=== PATIENT | male | born 1965 | race Caucasian/White ===

== ENCOUNTER 2016-09-17 19:45 | Inpatient (IN) | payer MEDICARE, MEDICAID ==
[2016-09-17 20:57] LABS: Benzodiazepine Urine Screen None Detected (None Detect)
[2016-09-17 21:03] LABS: Urine Bacteria 1+ (Absent); Urine Bilirubin Negative (Negative); Urine Glucose Negative (Negative); Urine Nitrite Negative (Negative)
[2016-09-17 21:30] LABS: Hematocrit 47 % (42-52); Hemoglobin 16.5 g/dl (14.0-18.0); Mean Corpuscular HGB Conc 35 g/dl (31-36); Mean Corpuscular Hemoglobin 30 pg (27-31); Mean Corpuscular Volume 86 fL (80-94); Mean Platelet Volume 7 um3 (7.4-10.4); Red Blood Count 5.49 10^6/ul (4.0-5.4); Red Cell Distribution Width 13 % (10.5-15); White Blood Count 9.4 10^3/ul (3.5-10.8)
[2016-09-17 21:45] LABS: ALT 12 U/L (7-52); AST 18 U/L (13-39); Albumin 4.4 g/dL (3.2-5.2); Alkaline Phosphatase 98 U/L (34-104); Anion Gap 8 mmol/L (2-11); BUN/Creatinine Ratio 14.6 (8-20); Blood Urea Nitrogen 13 mg/dL (6-24); CO2 Carbon Dioxide 20 mmol/L (22-32); Calcium 9.3 mg/dL (8.6-10.3); Chloride 108 mmol/L (101-111); EGFR Non-African American 89.4 (>60); Globulin 3.1 g/dL (2-4); Glucose 98 mg/dL (70-100); Potassium 3.6 mmol/L (3.5-5.0); Sodium 136 mmol/L (133-145); Total Protein 7.5 g/dL (6.4-8.9)
--- NOTE | 2016-09-17 21:47 | ED ---
Trav Freeman Claudia, scribed for Gallito Pradhan MD on 09/17/16 at 2023 . Psychiatric Complaint - HPI Summary HPI Summary: 51 year old male presents to the ED via [facility]. Per pt he has been unable to sleep for 5 days. Pt denies any thoughts of hurting himself or others. Pt states that he has chronic back pain and is on RX for it but it is causing him trouble sleeping. Pt denies the use of pain killers and he does not want to use them for the pain. Pt states that he does not remember when he got pulled over because he has only gotten 1.5 hours of sleep in the past 4-5 days. he states that he has been here before for similar Sx. in the past. He notes that all he wants is to sleep. Pt denies the use of melatonin to sleep. PMHX of Depression and Anxiety - History Of Current Complaint Chief Complaint: EDMentalHealth Time Seen by Provider: 09/17/16 20:14 Hx Obtained From: Patient, Other: - [facility] Onset/Duration: Still Present Timing: Constant Associated Signs And Symptoms: Positive: Sleep Disturbance - unable to sleep Has Suicidal: Denies: Thoughts Has Homicidal: Denies: Thoughts - Allergies/Home Medications Allergies/Adverse Reactions: Allergies Allergy/AdvReac Type Severity Reaction Status Date / Time No Known Allergies Allergy Verified 11/08/15 11:38 Home Medications: Home Medications Mirtazapine TAB* [Remeron TAB*] 15 mg PO BEDTIME 09/17/16 [History Confirmed ] PMH/Surg Hx/FS Hx/Imm Hx Previously Healthy: Yes GI History: Comment Only: Hx Ulcer - STATES "FEW YEARS BACK" WAS TOLD HE HAD ULCER, NO Sx NO Tx Musculoskeletal History: Reports: Hx Arthritis - LOW BACK, ELBOWS, Hx Back Problems Sensory History: Reports: Hx Contacts or Glasses - WILL WEAR GLASSES Denies: Other Sensory Impairments Opthamlomology History: Reports: Hx Contacts or Glasses - WILL WEAR GLASSES Denies: Other Sensory Impairments Neurological History: Reports: Hx Headaches - Hx OF, CURRENTLY NOT VERY OFTEN Psychiatric History: Reports: Hx Anxiety - ON MEDS DAILY, Hx Depression, Hx Community Mental Health Tx Denies: Hx Eating Disorder, Hx Inpatient Treatment, Hx of Violent Episodes Against Others, Hx Substance Abuse - Surgical History Surgery Procedure, Year, and Place: 1973 appendectomy [facility] Hx Anesthesia Reactions: No Infectious Disease History: Denies: Traveled Outside the [place] in Last 30 Days - Family History Family History: Depression, Anxiety - Social History Occupation: Disabled Lives: With Family Alcohol Use: None Substance Use Type: Reports: Marijuana Substance Use Comment - Amount & Last Used: USES MOST NIGHTS; WILL REFRAIN FEW DAYS PRE-OP Smoking Status (MU): Light Every Day Tobacco Smoker Type: Cigarettes Amount Used/How Often: 4 CIGS/DAY 2015; Hx OF 1PPD 20 YRS, Have You Smoked in the Last Year: Yes Review of Systems Constitutional: Negative Negative: Fever, Chills Eyes: Negative ENT: Negative Cardiovascular: Negative Respiratory: Negative Gastrointestinal: Negative Genitourinary: Negative Musculoskeletal: Negative Skin: Negative Neurological: Negative Psychological: Other - unable to sleep All Other Systems Reviewed And Are Negative: Yes Physical Exam Triage Information Reviewed: Yes Vital Signs On Initial Exam: Initial Vitals Temp Pulse Resp BP Pulse Ox 98.2 F 95 20 160/96 98 09/17/16 19:53 09/17/16 19:53 09/17/16 19:53 09/17/16 19:53 09/17/16 19:53 Vital Signs Reviewed: Yes Appearance: Positive: Well-Appearing, No Pain Distress Skin: Positive: Warm Head/Face: Positive: Normal Head/Face Inspection Eyes: Positive: LEANA ENT: Positive: Hearing grossly normal Neck: Positive: Supple Respiratory/Lung Sounds: Positive: Breath Sounds Present Cardiovascular: Positive: RRR Abdomen Description: Positive: Nontender, Soft Bowel Sounds: Positive: Present Musculoskeletal: Positive: Strength/ROM Intact Neurological: Positive: Normal Gait Psychiatric: Positive: Anxious Diagnostics - Vital Signs Vital Signs Temp Pulse Resp BP Pulse Ox 09/17/16 19:53 98.2 F 95 20 160/96 98 - Laboratory Lab Results: Lab Results 09/17/16 09/17/16 09/17/16 Range/Units 20:30 20:30 21:20 WBC 9.4 (3.5-10.8) 10^3/ul RBC 5.49 H (4.0-5.4) 10^6/ul Hgb 16.5 (14.0-18.0) g/dl Hct 47 (42-52) % MCV 86 (80-94) fL MCH 30 (27-31) pg MCHC 35 (31-36) g/dl RDW 13 (10.5-15) % Plt Count 220 (150-450) 10^3/ul MPV 7 L (7.4-10.4) um3 Neut % (Auto) 61.9 (38-83) % Lymph % (Auto) 28.3 (25-47) % [place] % (Auto) 4.5 (1-9) % Eos % (Auto) 3.5 (0-6) % Baso % (Auto) 1.8 (0-2) % Absolute Neuts (auto) 5.9 (1.5-7.7) 10^3/ul Absolute Lymphs (auto) 2.7 (1.0-4.8) 10^3/ul Absolute Monos (auto) 0.4 (0-0.8) 10^3/ul Absolute Eos (auto) 0.3 (0-0.6) 10^3/ul Absolute Basos (auto) 0.2 (0-0.2) 10^3/ul Absolute Nucleated RBC 0.01 10^3/ul Nucleated RBC % 0.1 Sodium (133-145) mmol/L Potassium (3.5-5.0) mmol/L Chloride (101-111) mmol/L Carbon Dioxide (22-32) mmol/L Anion Gap (2-11) mmol/L BUN (6-24) mg/dL Creatinine (0.67-1.17) mg/dL Est GFR ( Amer) (>60) Est GFR (Non-Af Amer) (>60) BUN/Creatinine Ratio (8-20) Glucose (70-100) mg/dL Calcium (8.6-10.3) mg/dL Total Bilirubin (0.2-1.0) mg/dL AST (13-39) U/L ALT (7-52) U/L Alkaline Phosphatase (34-104) U/L Total Protein (6.4-8.9) g/dL Albumin (3.2-5.2) g/dL Globulin (2-4) g/dL Albumin/Globulin Ratio (1-3) TSH Urine Color Straw Urine Appearance Clear Urine pH 5.0 (5-9) Ur Specific Harris 1.006 L (1.010-1.030) Urine Protein Negative (Negative) Urine Ketones Negative (Negative) Urine Blood 1+ H (Negative) Urine Nitrate Negative (Negative) Urine Bilirubin Negative (Negative) Urine Urobilinogen Negative (Negative) Ur Leukocyte Esterase Negative (Negative) Urine WBC (Auto) Absent (Absent) Urine RBC (Auto) Trace(0-2/hpf) (Absent) Urine Bacteria 1+ H (Absent) Urine Glucose Negative (Negative) Salicylates Urine Opiates Screen None detected (None Detect) Acetaminophen Ur Barbiturates Screen None detected (None Detect) Ur Phencyclidine Scrn None detected (None Detect) Ur Amphetamines Screen None detected (None Detect) U Benzodiazepines Scrn None detected (None Detect) Urine Cocaine Screen Presumptive positive H (None Detect) U Cannabinoids Screen Presumptive positive H (None Detect) Serum Alcohol 09/17/16 Range/Units 21:20 WBC (3.5-10.8) 10^3/ul RBC (4.0-5.4) 10^6/ul Hgb (14.0-18.0) g/dl Hct (42-52) % MCV (80-94) fL MCH (27-31) pg MCHC (31-36) g/dl RDW (10.5-15) % Plt Count (150-450) 10^3/ul MPV (7.4-10.4) um3 Neut % (Auto) (38-83) % Lymph % (Auto) (25-47) % [place] % (Auto) (1-9) % Eos % (Auto) (0-6) % Baso % (Auto) (0-2) % Absolute Neuts (auto) (1.5-7.7) 10^3/ul Absolute Lymphs (auto) (1.0-4.8) 10^3/ul Absolute Monos (auto) (0-0.8) 10^3/ul Absolute Eos (auto) (0-0.6) 10^3/ul Absolute Basos (auto) (0-0.2) 10^3/ul Absolute Nucleated RBC 10^3/ul Nucleated RBC % Sodium 136 (133-145) mmol/L Potassium 3.6 (3.5-5.0) mmol/L Chloride 108 (101-111) mmol/L Carbon Dioxide 20 L (22-32) mmol/L Anion Gap 8 (2-11) mmol/L BUN 13 (6-24) mg/dL Creatinine 0.89 (0.67-1.17) mg/dL Est GFR ( Amer) 115.0 (>60) Est GFR (Non-Af Amer) 89.4 (>60) BUN/Creatinine Ratio 14.6 (8-20) Glucose 98 (70-100) mg/dL Calcium 9.3 (8.6-10.3) mg/dL Total Bilirubin 0.40 (0.2-1.0) mg/dL AST 18 (13-39) U/L ALT 12 (7-52) U/L Alkaline Phosphatase 98 (34-104) U/L Total Protein 7.5 (6.4-8.9) g/dL Albumin 4.4 (3.2-5.2) g/dL Globulin 3.1 (2-4) g/dL Albumin/Globulin Ratio 1.4 (1-3) TSH Pending Urine Color Urine Appearance Urine pH (5-9) Ur Specific Harris (1.010-1.030) Urine Protein (Negative) Urine Ketones (Negative) Urine Blood (Negative) Urine Nitrate (Negative) Urine Bilirubin (Negative) Urine Urobilinogen (Negative) Ur Leukocyte Esterase (Negative) Urine WBC (Auto) (Absent) Urine RBC (Auto) (Absent) Urine Bacteria (Absent) Urine Glucose (Negative) Salicylates Pending Urine Opiates Screen (None Detect) Acetaminophen Pending Ur Barbiturates Screen (None Detect) Ur Phencyclidine Scrn (None Detect) Ur Amphetamines Screen (None Detect) U Benzodiazepines Scrn (None Detect) Urine Cocaine Screen (None Detect) U Cannabinoids Screen (None Detect) Serum Alcohol Pending Result Diagrams: 09/17/16 21:20 09/17/16 21:20 Lab Statement: Any lab studies that have been ordered have been reviewed, and results considered in the medical decision making process. Course/Dx - Differential Dx/Clinical Impression Provider Diagnosis: Psychosis - Physician Notifications Instructed by Provider To: Admit As Inpatient Patient Is Medically Stable For: Psych Evaluation - Med Cleared for MHE at 23:30 Discharge - Discharge Plan Condition: Fair Disposition: ADMITT[facility] TO [facility] The documentation as recorded by the Trav marinelli Claudia accurately reflects the service I personally performed and the decisions made by me, Gallito Pradhan MD.
[2016-09-17 22:09] LABS: Acetaminophen < 15 mcg/mL; Alcohol 149 mg/dL (<10); Salicylate < 2.50 mg/dL (<30)
[2016-09-17 22:20] LABS: TSH (Thyroid Stimulating Horm) 2.05 mcIU/mL (0.34-5.60)
[2016-09-18] MEDS ORDERED: diPHENhydraMINE PO* 50 MG PO PRN (00:33)
[2016-09-18] MEDS: Docusate CAP* 100 MG PO SCH ×2 (09:42→20:22)
[2016-09-18] MEDS: DULoxetine DR CAP* 60 MG CAP.DR PO SCH ×2 (09:42→20:23)
[2016-09-18] MEDS: MELOXICAM 7.5 MG PO SCH (09:42)
--- NOTE | 2016-09-18 12:46 | HP ---
HISTORY AND PHYSICAL: DATE OF ADMISSION: 09/18/16 IDENTIFYING DATA: Ashvin Chirinos is a 51-year-old physically disabled male with history of substance use disorders, depression, parasuicidal behavior, and previous psychiatric hospitalization. He was admitted to the psychiatric unit on emergency basis after coming to the hospital with law enforcement due to concern over suicidal statements made at home. His son apparently called 911. HISTORY OF PRESENT ILLNESS: Ashvin was last admitted to our psychiatric unit in August 2014. He denies psychiatric hospitalizations or suicide attempts since then. He reports ongoing care at [facility] and said he missed an appointment the day prior to his presentation. He reports stable regimen of Remeron and Cymbalta and thinks those medicines are good for him. He denies symptoms of a major depressive episode. Specifically, he denies unremitting daily sad mood, helplessness, hopelessness, worthlessness, or any consistent experience of wishes. He does not really recall the events of his presentation. Per report, he told his something about slitting his wrist and while she was not immediately concerned for his safety, his son was. He said he did it to get some sort of reaction out of her. He reports dysphoria and anxiety at times in reaction to back pain. He said when the pain comes and goes, it causes insomnia and that is his main problem. He reported sleeping very poorly this week. He had previously been using marijuana on a nightly basis per his regular practice to help with sleep and somehow it stopped working this week. He endorsed using alcohol but denied using it on a daily basis. In the emergency room, he had an elevated alcohol level and his urine was positive for cocaine and cannabinoids. He stated he was surprised by the cocaine results and denied using the drug. However, he posited that his marijuana could have been "spiked" with it and we speculated how this would presumably cause him difficulty sleeping this week if he was inadvertently using cocaine at bedtime. He denied perceptual disturbance, violent ideation, parasuicidal behavior, or any current wishes. He denied current emotional pain. He said he just felt tired. He was interested in using the hospital space to catch up with sleep. He was okay with being admitted what was hopeful for a brief stay. He denied new health problems apart from long-term struggle with back pain. He said that he has worked with his providers to avoid narcotics analgesics as he knows he would get addicted to them. He reports regular marijuana use and episodic alcohol use. Denies use of other intoxicants. Stressors are recent arrest for marijuana possession and ongoing legal process there; and that his cousin's son by suicide about 2 weeks ago, but Ashvin reports not being close to the decedent and not having much reaction to it. PRIOR PSYCHIATRIC HISTORY: Has been in long-term outpatient care at [facility] in treatment for depression. He has one prior psychiatric hospitalization at our facility in 2014. Concern at that time centered on parasuicidal behavior. He had reported a plan to shoot himself in the head with firearm and had one of his guns by his bedside for about two hours but decided not to act on it out of concern for his family. He continues with firearm access at home and stated he was open to the idea of his being control of the keys. He reported about 5 years of mental health concerns in terms of reactive depression after physical health problems. MEDICAL HISTORY: No chronic illnesses, chronic back pain, pursuant to fall 7 years ago. ALLERGIES: No known drug allergies. OUTPATIENT MEDICATION REGIMEN: 1. Duloxetine 60 mg b.i.d. 2. Colace 100 mg b.i.d. 3. Meloxicam 7.5 mg daily. 4. Mirtazapine 15 mg each bedtime. FAMILY PSYCHIATRIC HISTORY: A son of his cousin by suicide a couple of weeks ago. He said he did not even know the young man. Sister had depression and anxiety. There is alcohol abuse in the family. SUBSTANCE USE HISTORY: Alcohol has been a problem periodically. He reported a period of 10 years sobriety and is currently drinking on an episodic basis. It was heavy in the past with reported 6 to 12 beers every other day. He has had legal difficulties as a result with four DWIs and had probably mandatory rehabilitation at [facility]. He has also used Alcoholics Anonymous. He has not used medications for abstinence and he has denied withdrawal symptoms. Marijuana has been a long-term habit with periods of daily use, which he generally has used at bedtime for insomnia. He has denied cocaine use but tested positive on this admission. He denied use of other illicit drugs. He reports quarter pack a day cigarette habit. SOCIAL HISTORY: and resides with his in [place], [place]. He was 1 of 13 children in the middle. He grew up with his parents and he reported that they use corporal punishment avidly but denied abuse. He went to school in [place] and completed high school and took some college classes. He served in the out of the area and returned to [employer] thereafter. He has been with his for over 20 years, for about 20 years, has reported has a good relationship. They have two boys, 13 and 16 years old. Family lives in the area. MENTAL STATUS EXAMINATION: Middle-aged male, who is slightly disheveled in hospital scrub clothing with somewhat poor personal hygiene. Psychomotor activity is normal. He is a little guarded and defended but pleasant, maintains good eye contact. Speech is spontaneous and unpressured. Mood is described as "okay." Affect is mildly dysphoric. It is stable. Thought process is coherent in content. Negative for current suicidal, homicidal, or paranoid ideations. Sensorium is clear. He is alert and oriented x3. Insight and judgment is fair and impulse control is intact. PHYSICAL ASSESSMENT: VITAL SIGNS: Temperature is 98.5, blood pressure is 145/ 85, pulse is 80, respiratory rate is 16. LABORATORY STUDIES: CBC had RBC of 5.49, MPV of 7, comprehensive panel and carbon dioxide of 20, TSH was normal. Urinalysis had specific gravity of 1.006 , 1+ blood, 1+ bacteria. Toxicology screen was negative for Tylenol or salicylates. Alcohol level was 149. Urine drug screen was positive for cocaine and cannabinoids. REVIEW OF SYSTEMS: Negative for neurological difficulties, respiratory problems , chest pain, syncope, gastrointestinal symptoms, elimination symptoms, new musculoskeletal problems apart from chronic back pain or skin problems. PHYSICAL EXAMINATION Deferred. Ashvin declined the examination citing lack of subjective need and his own preference. It is a reasonable refusal. He has been medically cleared for psychiatric hospitalization, is medically stable. CLINICAL SUMMARY: Second psychiatric hospitalization for 51-year-old male with substance use disorders, periodic depressive symptoms, history of parasuicidal behavior, and outpatient mental health treatments. He presented in crisis while apparently intoxicated with alcohol and with cocaine and cannabinoids in his system made a threat to cut his wrist. This was apparently in a setting of conflict, under subacute stressors of new legal charges for marijuana possession and with some possible impact of the by suicide of a distant relative. He has an evolving clinical picture in which intoxication has worn off. He does not appear to be actively suicidal nor in the throes of major depressive episode. As a result, it will probably be appropriate to accommodate his request for a brief psychiatric hospitalization. In the course of planning discharge, we should confirm with family, their comfort level with his status and also make an effort to establish some means restrictions around firearms. ADMISSION DIAGNOSES: Alcohol use disorder with intoxication and induced mood symptoms, cannabis use disorder, moderate; rule out cocaine use disorder with induced mood symptoms; depressive disorder, not otherwise specified. TREATMENT PLAN: Admit to the psychiatric unit on emergency basis. Code status is full, safety checks are at 15 minute intervals, initiate comprehensive group milieu and individual psychotherapeutic support. Medication management, continue with the outpatient medication regimen. Target symptoms are suicidal ideation, elevated distress, impaired coping. These are already resolving. The patient's strengths are his intact intellectual functioning and baseline health along with his ability to maintain a treatment alliance. Discharge planning will involve coordination with appropriate aftercare and effort at means restriction and family involvement. [id number]/CPS #: [id number] MTDFanny
--- NOTE | 2016-09-18 13:07 | PN ---
MHU: Group Therapy Note - Service Type Service Type: 95207 Group Psychotherapy - Cognitive Behavioral Group Therapy ( CBT):Patient was attentive and participatory in CBT programming this morning, and remained in good behavioral control. Patient expressed positive insights regarding relevant treatment interventions and goals.
[2016-09-18] MEDS ORDERED: Mouth Piece, Nicotine* 1 EACH CARTRIDGE ONE (18:50)
[2016-09-18] MEDS: Nicotine Inhaler* 10 MG AMP INH PRN (18:50)
[2016-09-18] MEDS ORDERED: Mirtazapine TAB* 15 MG PO SCH (21:00)
[2016-09-19] MEDS: Docusate CAP* 100 MG PO SCH (07:58)
[2016-09-19] MEDS: DULoxetine DR CAP* 60 MG CAP.DR PO SCH (07:58)
[2016-09-19] MEDS: Nicotine Inhaler* 10 MG AMP INH PRN (08:30)
[2016-09-19] MEDS: MELOXICAM 7.5 MG PO SCH (10:20)
[2016-09-19 10:33] VITALS: BP 147/89
--- NOTE | 2016-09-19 11:35 | DS ---
Subjective - Subjective Service Types: 82183 [facility] Day Mgmt simple under 30 min Discharge Date: 09/19/16 Subjective: Ashvin reported feeling "very good" and said he misses his family and they miss him. He declines further inpatient care. He affirms he is free of emotional pain, uncontrolled anxiety, wishes or suicidal thoughts. He acknowledges substances played a role in his crisis. He states plan to avoid Cocaine (still does not acknowledge voluntarily taking any, but says it was only a problem for a few days), and avoid alcohol. He declined offer of medications to support sobriety. He said his counseling program will be adequate. We reviewed medication and aftercare plan. He said he sees absolutely no barriers to routine support and care, or emergency help if needed. Objective - Appearance Appearance: Healthy Appearing Hygiene: Normal Grooming: Well Kept - Behavior Psychomotor Activities: Normal - Attitude and Relatedness Attitude and Relatedness: Superficially Cooperative Eye Contact: Good - Speech Quality: Unpressured Latencies: Normal Quantity: Appropriate - Mood Patient's Decription of Mood: "Okay" - Affect Observed Affect: Non-labile Affect Consistent with: Euthymia - Thought Process Patient's Thought Process: Coherent, Goal Directed Thought Content: No Passive Wish, No Suicidal Planning, No Homicidal Ideation, No Paranoid Ideation - Sensorium Experiencing Hallucinations: No, Sensorium is Clear - Level of Consciousness Level of Consciousness: Alert - Impulse Control Impulse Control: Intact - Insight and Judgement Insight and Judgement: Fair Treatment Course & Assessment Clinical Course & Impression: Second psychiatric hospitalization for 51-year-old male with substance use disorders, periodic depressive symptoms, history of parasuicidal behavior, and outpatient mental health treatments. He presented in crisis while apparently intoxicated with alcohol and with cocaine and cannabinoids in his system made a threat to cut his wrist. This was apparently in a setting of conflict, under subacute stressors of new legal charges for marijuana possession and with some possible impact of the by suicide of a distant relative. 09/19/16 Clear for release. Ashvin was safe on checks, consistently in behavioral control, and free of suicidal ideation on every evaluation. He has improved in an evolving clinical picture in which intoxication (and hangover/post-intoxication dysphoria) has worn off. He is not in a major depressive episode. His crisis and symptoms were substance induced. They are corrected. He is not impaired. Medication management continued with the outpatient medication regimen. His was contacted by interstate planner, she supported his release, and confirmed means restriction around firearms. Risk concern centered on suicide risk. Based on his demographics and profile, history of status and other losses and stressors, prior behavior, substance use , and periodic symptom mix, Ashvin is at chronic elevated risk for suicide (and also for violence when impaired). Currently acute risk of harm to self/other is assessed as low on basis of very low symptom burden, absence of impairment, and his benign recent ideation and behavior. Clear for Discharge: Adequate Clinical Respons, Acceptable Safety Profile, Low Utility of Inpt Care Inpatient DSM-IV Dx: Alcohol use disorder with intoxication and induced mood symptoms, cannabis use disorder, moderate; rule out cocaine use disorder with induced mood symptoms; depressive disorder, not otherwise specified. Discharge Planning - Discharge Planning Discharge Plan: Outpatient Follow Up Outpatient Program: [facility] Recommendations for Continuing Care: Medication Management, Psychotherapy, Substance Abuse Counseling, Primary Care Followup Medications: Current Medications Docusate Sodium (Colace Cap*) 100 mg PO BID [facility] Last Admin: 09/19/16 07:58 Dose: Not Given Duloxetine HCl (Cymbalta Cap*) 60 mg PO BID [facility] Last Admin: 09/19/16 07:58 Dose: 60 mg Meloxicam (Mobic(Nf)) 7.5 mg PO DAILY [facility] Last Admin: 09/19/16 10:20 Dose: 7.5 mg Mirtazapine (Remeron Tab*) 15 mg PO BEDTIME [facility] Last Admin: 09/18/16 20:23 Dose: 15 mg Discharge Planning: Prescriptions provided for discharge [] Yes [x] No Follow up care details as per social work arrangements. Patient response to discharge plan: [x] eager for discharge [] agreeable with discharge plan [] ambivalent about discharge [] disagrees with discharge today
== END 2016-09-19 13:00 | disposition home or self-care (01) | DRG 897 ==
LOC: ED 19:45 → BSU 09-18 03:02
PROVIDERS: ADMIT Psychiatry & Neurology Psychiatry; ATTEND Psychiatry & Neurology Psychiatry
DX: F10.129 Alcohol abuse with intoxication, unspecified (principal); R45.851 Suicidal ideations; F12.10 Cannabis abuse, uncomplicated; Y90.6 Blood alcohol level of 120-199 mg/100 ml; F32.9 Major depressive disorder, single episode, unspecified; M54.9 Dorsalgia, unspecified; Z81.8 Family history of other mental and behavioral disorders; Z81.1 Family history of alcohol abuse and dependence; Z79.899 Other long term (current) drug therapy; F17.210 Nicotine dependence, cigarettes, uncomplicated
CPT/HCPCS: 36415; 80053; 80307; 80320; 80329; 81003; 81015; 84443; 85025; 87086; 90853; 99222; 99238; A9270-GY; G0480